=== PATIENT | female | born 1955 | race Caucasian/White ===

== ENCOUNTER → 2016-07-18 | Outpatient (CLI) | payer BC ==
[~2016-07-18] MED LIST: COUMADIN ** IA5 MG PO; FEOSOL325 MG PO; GLUCOPHAGE500 MG PO; LEVAQUIN500 MG PO; LEVOTHROID (S100 MCG PO; TYLENOL325 MG PO
== END | disposition disaster alternative care site (69) ==
LOC: GBCOE 06-14 09:00
DX: Z12.31 Encounter for screening mammogram for malignant neoplasm of breast (principal)
CPT/HCPCS: G0202